=== PATIENT | male | born 1980 ===

== ENCOUNTER 2016-10-06 21:36 | Emergency (ER) | payer OTHER ==
[2016-10-06 22:00] VITALS: BP 131/82; PULSE 67; RESP 20; TEMP 98.1; O2SAT 99
--- NOTE | 2016-10-06 22:12 | C.PDOC ---
History Of Present Illness 36 y.o male presents to ED with complaints of chest and rib pain after dropping 200pound weight from barbells at gym one week ago. He states he was lifting and it slipped and the bar hit his chest. He has been taking Advil with mild relief , but pain persists and worsens with movement and deep inspiration. Denies swelling, bruising, SOB. Time Seen by Provider: 10/06/16 21:59 Chief Complaint (Nursing): Chest Pain History Per: Patient History/Exam Limitations: no limitations Onset/Duration Of Symptoms: Days (7) Current Symptoms Are (Timing): Still Present Past Medical History Reviewed: Historical Data, Nursing Documentation, Vital Signs Vital Signs: Last Vital Signs Temp 98.1 F 10/06/16 21:55 Pulse 67 10/06/16 21:55 Resp 20 10/06/16 21:55 BP 131/82 10/06/16 21:55 Pulse Ox 99 10/06/16 22:14 - Medical History PMH: No Chronic Diseases Surgical History: No Surg Hx Family History: States: Unknown Family Hx - Social History Hx Alcohol Use: Yes Hx Substance Use: No - Immunization History Hx Tetanus Toxoid Vaccination: No Hx Influenza Vaccination: No Hx Pneumococcal Vaccination: No Review Of Systems Constitutional: Negative for: Fever, Weakness, Malaise Cardiovascular: Positive for: Chest Pain (rib pain). Negative for: Palpitations Respiratory: Negative for: Cough, Shortness of Breath Gastrointestinal: Negative for: Vomiting, Abdominal Pain, Diarrhea Musculoskeletal: Negative for: Neck Pain, Arm Pain Skin: Negative for: Rash, Bruising Neurological: Negative for: Headache, Dizziness Physical Exam - Physical Exam Appears: Non-toxic, No Acute Distress Skin: Warm, Dry, No Rash, No Ecchymosis Head: Atraumatic, Normacephalic Eye(s): bilateral: Normal Inspection Oral Mucosa: Moist Neck: Normal ROM Chest: Symmetrical, No Deformity, Tenderness (anterior chest wall tenderness below nipple line, right lateral ribs mildly tender), No Ecchymosis, No Subcutaneous Emphysema Cardiovascular: Rhythm Regular, No Murmur Respiratory: Normal Breath Sounds, No Rhonchi, No Wheezing Back: Normal Inspection, No Vertebral Tenderness, No Paraspinal Tenderness Extremity: Normal ROM, No Deformity, No Swelling Neurological/Psych: Oriented x3, Normal Speech ED Course And Treatment O2 Sat by Pulse Oximetry: 99 Medical Decision Making Medical Decision Making: Impression: 36 y.o male with chest and rib pain s.p injury Plan: Chest and rib xray Progress: Xray reviewed showing no acute fracture Recommend analgesics, motrin or tylenol Disposition Counseled Patient/Family Regarding: Need For Followup, Rx Given - Disposition Referrals: [facility] [Outside] [facility] [Outside] [facility] [Outside] Disposition: HOME/ ROUTINE Disposition Time: 22:36 Condition: STABLE Additional Instructions: [place] Naproxen cada 6-8 horas para el dolor Siga con haji mdico o clnica primaria en gregorio semana para gregorio evaluacin ms detallada y referencia ortopdica si el dolor persiste La radiografa era normal Prescriptions: Naproxen [Naprosyn] 1 tab PO BID PRN #25 tab PRN Reason: Pain Instructions: Rib Contusion (ED) Print Language: FAROESE - POA Present On Arrival: None - Clinical Impression Clinical Impression: Chest wall contusion
--- NOTE | 2016-10-07 10:20 | RAD ---
PROCEDURE: Radiographs of the Chest and Right Ribs. HISTORY: pain to chest/rib s.p injury at gym COMPARISON: 03/09/2012. TECHNIQUE: Frontal radiograph of the chest and multiple oblique radiographs of the right ribs were obtained. FINDINGS: RIGHT RIBS: No fracture or focal lesion visualized. LUNGS: Clear. PLEURA: No pneumothorax or pleural fluid. CARDIOVASCULAR: Normal sized heart. No pulmonary vascular congestion. OTHER FINDINGS: None. IMPRESSION: Unremarkable radiographs of the chest and right ribs. No right rib fracture. No significant interval change compared to the prior examination(s). Concordant results with the preliminary interpretation rendered by the emergency department physician procedure.
--- NOTE | 2016-10-08 08:44 | CARD ---
APPROVED REPORT EKG Measurement Heart [id number] [id number] <Conclusion> Normal sinus rhythm Minimal voltage criteria for LVH, may be normal variant Borderline ECG
== END 2016-10-06 22:42 | disposition home or self-care (01) ==
LOC: C.ER 21:36
DX: S20.211A Contusion of right front wall of thorax, initial encounter (principal); W22.8XXA Striking against or struck by other objects, initial encounter; Y93.B3 Activity, free weights

== ENCOUNTER 2017-04-01 09:44 | Emergency (ER) | payer OTHER ==
[2017-04-01 09:51] VITALS: BP 131/78; PULSE 56; RESP 20; TEMP 97.5; O2SAT 98
--- NOTE | 2017-04-01 10:10 | C.PDOC ---
History Of Present Illness 36 year old male presents to the ER with complaint of intermittent headache associated with light sensitivity and occasional tingling in the hands for the past 12 years. He states his PMD is aware of symptoms, and he had a "test of the head" 6 years ago which was "normal". Patient has not been evaluated by neurologist. He comes to the ER today because yesterday he had another episode of the symptoms that was stronger than typical. Symptoms from yesterday have since resolved. Patient denies fever, visual changes, dizziness , facial droop, slurred speech, neck pain/stiffness, extremity weakness, gait changes, nausea/vomiting. Time Seen by Provider: 04/01/17 09:58 Chief Complaint (Nursing): Headache History Per: Patient History/Exam Limitations: no limitations Onset/Duration Of Symptoms: Persistent (12 years) Current Symptoms Are (Timing): Gone Preceeding Symptoms: Known Migraine Symptoms Associated Symptoms: Photophobia, Other (Tingling in hands). denies: Blurred Vision, Nausea, Vomiting, Extremity Weakness Past Medical History Reviewed: Historical Data, Nursing Documentation, Vital Signs Vital Signs: Last Vital Signs Temp 97.5 F L 04/01/17 09:48 Pulse 56 L 04/01/17 09:48 Resp 20 04/01/17 09:48 BP 131/78 04/01/17 09:48 Pulse Ox 98 04/01/17 11:11 - Medical History Other PMH: headaches x 12 years Surgical History: No Surg Hx Family History: States: No Known Family Hx - Social History Hx Alcohol Use: No Hx Substance Use: No - Immunization History Hx Tetanus Toxoid Vaccination: No Hx Influenza Vaccination: No Hx Pneumococcal Vaccination: No Review Of Systems Except As Marked, All Systems Reviewed And Found Negative. Constitutional: Negative for: Fever, Chills Cardiovascular: Negative for: Chest Pain, Palpitations Respiratory: Negative for: Cough, Shortness of Breath Gastrointestinal: Negative for: Nausea, Vomiting, Abdominal Pain, Diarrhea Musculoskeletal: Negative for: Neck Pain Skin: Negative for: Rash Neurological: Positive for: Headache, Other (light sensitivity, tingling in hands). Negative for: Weakness, Incoordination, Change in Speech, Confusion, Seizures, Altered Mental Status, Dizziness Physical Exam - Physical Exam Appears: Well, Non-toxic, No Acute Distress Skin: Normal Color, Warm, Dry, No Rash Head: Atraumatic, Normacephalic Eye(s): bilateral: Normal Inspection, PERRL, EOMI Oral Mucosa: Moist Neck: Normal, Normal ROM, No Midline Cervical Tenderness, No Paracervical Tenderness, No Step Off Deformity, Supple, Other (no meningismus ) Cardiovascular: Rhythm Regular, No Murmur Respiratory: Normal Breath Sounds, No Rales, No Rhonchi, No Wheezing Gastrointestinal/Abdominal: Normal Exam, Bowel Sounds, Soft, No Tenderness Extremity: Normal ROM Extremity: Bilateral: Atraumatic, Normal Color And Temperature, Normal ROM Neurological/Psych: Oriented x3, Normal Speech, Normal Cognition, Normal Cranial Nerves, No Cerebellar Signs, Normal Motor, Normal Sensation, No Dysarthria, No Romberg Gait: Steady ED Course And Treatment O2 Sat by Pulse Oximetry: 98 (Room air) Pulse Ox Interpretation: Normal Progress Note: Patient requesting medication for nausea - Zofran ODT given. He admits he did not visit PMD for symptoms because his PMD will charge him for office visit. Explained to patient that a CT head is not the appropriate test for his typie of symptoms. Patient instructed to follow up with neurology within 1 week for further evaluation, and to request Rx for outpatient MRI from his PMD/neuro. Rxs for Fiorecet and Zofran ODT given. He understands he should return to ED if symptoms worsen. Disposition Counseled Patient/Family Regarding: Diagnosis, Need For Followup, Rx Given - Disposition Referrals: Adolph Campbell MD [Medical Doctor] - Dorian Gil MD [Staff Provider] - Disposition: HOME/ ROUTINE Disposition Time: 10:20 Condition: STABLE Additional Instructions: FOLLOW UP WITH YOUR DOCTOR IN 1-2 DAYS, AND WITH NEUROLOGIST WITHIN 1 WEEK USE MEDICATION NEEDED ASK YOUR DOCTOR FOR PRESCRIPTION FOR OUTPATIENT MRI RETURN TO EMERGENCY ROOM IF SYMPTOMS WORSEN SEGUIMIENTO CON HARDIN MDICO EN 1-2 RODRÍGUEZ, Y CON NEURLOGO DENTRO DE 1 SEMANA USE MEDICAMENTOS SEGN SEA NECESARIO PREGUNTE A HARDIN MDICO PARA LA PRESCRIPCIN PARA MRI AMBULATORIO REGRESE AL PATIENCE DE EMERGENCIA SI LOS SNTOMAS EMPEORAN Prescriptions: Acetaminophen/Butalbital/Caf [Fioricet] 1 tab PO TID PRN #20 tab PRN Reason: Headache Ondansetron [Zofran Odt] 4 mg PO Q8 PRN #12 odt PRN Reason: Nausea/Vomiting Instructions: Migraine Headache (ED) Forms: [employer] (French) Print Language: DANISH - POA Present On Arrival: None - Clinical Impression Clinical Impression: Migraine - Scribe Statement The provider has reviewed the documentation as recorded by the Scribtiarra Mccullough All medical record entries made by the Turneribtiarra were at my direction and personally dictated by me. I have reviewed the chart and agree that the record accurately reflects my personal performance of the history, physical exam, medical decision making, and the department course for this patient. I have also personally directed, reviewed, and agree with the discharge instructions and disposition.
== END 2017-04-01 10:20 | disposition home or self-care (01) ==
LOC: C.ER 09:44
DX: G43.909 Migraine, unspecified, not intractable, without status migrainosus (principal)

== ENCOUNTER 2018-02-25 09:22 | Emergency (ER) | payer OTHER ==
[2018-02-25 09:23] VITALS: BMI 29.2
[2018-02-25 09:38] VITALS: BP 131/95; PULSE 58; RESP 20; TEMP 98.6; O2SAT 98
--- NOTE | 2018-02-25 10:11 | C.PDOC ---
History Of Present Illness 37 y/o male, w/no significant PMhx, presents to the ER complaining of dry mouth, sore throat, and acid reflux which has been present for the past 2 months. Patient states that he wake up in the morning daily with dry mouth and sore throat. Patient is also complaining of increasing heartburn with substernal chest pain and epigastric pain for the past 2 months. He notes that the pain is worse with laying flat after meals. He took an unknown OTC medication for the symptoms without relief. Denies having fever, chills, lightheadedness, visual changes, ear pain, neck pain, palpitations, diaphoresis, nausea, vomiting, and diarrhea. Chief Complaint (Nursing): ENT Problem History Per: Patient History/Exam Limitations: None Onset/Duration Of Symptoms: Days Current Symptoms Are (Timing): Still Present Severity: Moderate Past Medical History Reviewed: Historical Data, Nursing Documentation, Vital Signs Vital Signs: Last Vital Signs Temp 98.6 F 02/25/18 09:35 Pulse 58 L 02/25/18 09:35 Resp 20 02/25/18 09:35 BP 131/95 H 02/25/18 09:35 Pulse Ox 98 02/25/18 09:35 - Medical History PMH: No Chronic Diseases Surgical History: No Surg Hx Family History: States: No Known Family Hx - Social History Hx Alcohol Use: No Hx Substance Use: No - Immunization History Hx Tetanus Toxoid Vaccination: No Hx Influenza Vaccination: No Hx Pneumococcal Vaccination: No Review Of Systems Except As Marked, All Systems Reviewed And Found Negative. Constitutional: Negative for: Fever, Chills Eyes: Negative for: Vision Change ENT: Positive for: Throat Pain, Other (dry mouth). Negative for: Ear Pain Cardiovascular: Negative for: Chest Pain, Palpitations Respiratory: Negative for: Cough, Shortness of Breath Gastrointestinal: Positive for: Abdominal Pain (epigastric), Other (acid reflux). Negative for: Nausea, Vomiting, Diarrhea, Constipation, Melena, Hem atochezia, Hematemesis Musculoskeletal: Negative for: Neck Pain, Shoulder Pain, Arm Pain, Back Pain, Hand Pain, Leg Pain, Foot Pain Skin: Negative for: Rash Neurological: Negative for: Weakness, Numbness, Headache Physical Exam - Physical Exam Appears: Non-toxic Skin: Normal Color, Warm Head: Atraumatic, Normacephalic Eye(s): bilateral: Normal Inspection, PERRL, EOMI Ear(s): Bilateral: Normal Nose: Normal Oral Mucosa: Moist Tongue: Normal Appearing Lips: Normal Appearing Teeth: Normal Dentition Gingiva: Normal Appearing Throat: Normal, No Erythema, No Exudate Neck: Normal, Normal ROM, Supple Lymphatic: Normal Exam Chest: Symmetrical Cardiovascular: Rhythm Regular Respiratory: Normal Breath Sounds, No Rales, No Rhonchi, No Wheezing Gastrointestinal/Abdominal: Bowel Sounds, Soft, Tenderness (mild epigastric tenderness), No Mass, No Guarding, No Rebound Pulses: Left Radial: Normal, Right Radial: Normal Neurological/Psych: Oriented x3, Normal Speech, Normal Cognition, Normal Cranial Nerves, No Cerebellar Signs, Normal Motor, Normal Sensation ED Course And Treatment O2 Sat by Pulse Oximetry: 98 (RA) Pulse Ox Interpretation: Normal Medical Decision Making Medical Decision Making: Impression: Acid Reflux Plan: Take omeprazole 1 pill every morning Take pepcid 1 pill every 12 hours as needed for acid reflux Followup with clinic or primary doctor within 2 days Return to Emergency department if symptoms worsen Disposition - Disposition Referrals: [facility] [Outside] Disposition: HOME/ ROUTINE Disposition Time: 10:08 Condition: GOOD Additional Instructions: Lindsay omeprazole 1 pldora cada maana Lindsay Pepcid 1 pldora cada 12 horas segn sea necesario para el reflujo cido Seguimiento con clnica o mdico de cabecera en 2 segal Regresar al Departamento de emergencias si los sntomas empeoran Prescriptions: Famotidine [Pepcid] 20 mg PO Q12H PRN #30 tab PRN Reason: reflux Omeprazole 40 mg PO DAILY 30 Days #30 tab Instructions: Acid Reflux (Gastroesophageal Reflux Disease), Adult (DC) Forms: [employer] (Telugu) Print Language: CITIZEN [place] - Clinical Impression Clinical Impression: Acid reflux - PA / FBI SHARPSHOOTER / Resident Statement MD/DO has reviewed & agrees with the documentation as recorded. - Scribe Statement The provider has reviewed the documentation as recorded by the Scribe Myles Rendon Provider Attestation All medical record entries made by the Scribe were at my direction and personally dictated by me. I have reviewed the chart and agree that the record accurately reflects my personal performance of the history, physical exam, medical decision making, and the department course for this patient. I have also personally directed, reviewed, and agree with the discharge instructions and disposition.
== END 2018-02-25 10:32 | disposition home or self-care (01) ==
LOC: C.ER 09:22
DX: K21.9 Gastro-esophageal reflux disease without esophagitis (principal)

== ENCOUNTER 2018-04-30 23:17 | Emergency (ER) | payer OTHER ==
[2018-04-30 23:18] VITALS: BMI 29.2
[2018-04-30] MEDS ORDERED: Sodium Chloride 0.9% 1,000 ML IV ONE (23:42)
[2018-04-30] MEDS ORDERED: Sodium Chloride 0.9% 1,000 ML ONE (23:51)
[2018-05-01] MEDS ORDERED: Iohexol 240 (50 ml) PO ONE
[2018-05-01] MEDS ORDERED: Iohexol 240 (50 ml) ONE (00:05)
--- NOTE | 2018-05-01 00:17 | C.PDOC ---
History Of Present Illness 37 year old male presents to the ER with a complaint of RLQ pain intermittently for the past few days that worsened today. Denies nausea, vomiting, or diarrhea. Chief Complaint (Nursing): Abdominal Pain History Per: Patient History/Exam Limitations: no limitations Onset/Duration Of Symptoms: Days, Intermittent Episodes Current Symptoms Are (Timing): Still Present Location Of Pain/Discomfort: RLQ Quality Of Discomfort: Unable To Describe Associated Symptoms: denies: Nausea, Vomiting, Diarrhea Exacerbating Factors: None Alleviating Factors: None Recent travel outside of the [place]: No Past Medical History Reviewed: Historical Data, Nursing Documentation, Vital Signs Vital Signs: Last Vital Signs Temp 98 F 04/30/18 23:27 Pulse 65 04/30/18 23:27 Resp 16 04/30/18 23:27 BP Pulse Ox 96 04/30/18 23:27 Family History: States: Unknown Family Hx - Social History Hx Alcohol Use: No Hx Substance Use: No - Immunization History Hx Tetanus Toxoid Vaccination: No Hx Influenza Vaccination: No Hx Pneumococcal Vaccination: No Review Of Systems Constitutional: Negative for: Fever, Chills Cardiovascular: Negative for: Chest Pain, Palpitations Respiratory: Negative for: Cough, Shortness of Breath Gastrointestinal: Positive for: Abdominal Pain. Negative for: Nausea, Vomiting, Diarrhea Genitourinary: Negative for: Dysuria, Hematuria Physical Exam - Physical Exam Appears: Non-toxic Skin: Normal Color, Warm, Dry Head: Atraumatic, Normacephalic Eye(s): bilateral: Normal Inspection Oral Mucosa: Moist Neck: Normal, Supple Chest: Symmetrical, No Tenderness Cardiovascular: Rhythm Regular Respiratory: Normal Breath Sounds, No Rales, No Rhonchi, No Wheezing Gastrointestinal/Abdominal: Soft, Tenderness (RLQ, Hypogastric), No Guarding, No Rebound Back: No CVA Tenderness Neurological/Psych: Oriented x3, Normal Speech ED Course And Treatment - Laboratory Results Result Diagrams: 04/30/18 23:59 04/30/18 23:59 O2 Sat by Pulse Oximetry: 96 (Room air) Pulse Ox Interpretation: Normal Progress Note: CT abd/pel, blood work, and urinalysis. IV fluids and toradol administered. Disposition Counseled Patient/Family Regarding: Diagnosis - Disposition Referrals: [facility] at [facility] [Outside] Disposition: HOME/ ROUTINE Disposition Time: 03:54 Condition: STABLE Prescriptions: Docusate Sodium [Colace] 100 mg PO BID #20 capsule Instructions: Constipation in Adults Forms: [employer] (Chinese), Gen Discharge Inst Portuguese Print Language: CZECH - POA Present On Arrival: None - Clinical Impression Clinical Impression: Abdominal pain, Constipation - Scribe Statement The provider has reviewed the documentation as recorded by the Scribe Alex Mccullough All medical record entries made by the Turneribe were at my direction and personally dictated by me. I have reviewed the chart and agree that the record accurately reflects my personal performance of the history, physical exam, medical decision making, and the department course for this patient. I have also personally directed, reviewed, and agree with the discharge instructions and disposition.
[2018-05-01 00:18] LABS: ALB/GLOB RATIO 1.8 (1.0-2.1); ALBUMIN 4.4 g/dL (3.5-5.0); ALT/SGPT 30 U/L (21-72); AST/SGOT 32 U/L (17-59); BLOOD UREA NITROGEN 16 mg/dL (9-20); CALCIUM 9.1 mg/dl (8.6-10.4); GFR NON-AFRICAN AMERICAN > 60; LIPASE 53 U/L (23-300)
[2018-05-01 00:28] LABS: BASO % 0.4 % (0.0-2.0); EOS # 0.3 K/uL (0.0-0.7); EOS % 3.7 % (0.0-4.0); HEMOGLOBIN 15.4 g/dL (12.0-18.0); LYMPH # 2.6 K/uL (1.0-4.3); LYMPH % 31.7 % (20.0-40.0); MEAN CELL VOLUME 86.6 fL (80.0-94.0); MEAN CORPUSCULAR HEMOGLOBIN 30.6 pg (27.0-31.0); MEAN CORPUSCULAR HGB CONC 35.3 g/dL (33.0-37.0); MEAN PLATELET VOLUME 8.2 fL (7.2-11.7); MONO # 0.6 K/uL (0.0-0.8); MONO % 7.8 % (0.0-10.0); NEUT # 4.6 K/uL (1.8-7.0); NEUT % 56.4 % (50.0-75.0); NRBC % 0.1 % (0.0-2.0); RBC 5.04 Mil/uL (4.40-5.90); RED CELL DISTRIBUTION WIDTH 13.4 % (11.5-14.5); WHITE BLOOD COUNT 8.1 K/uL (4.8-10.8)
[2018-05-01] MEDS ORDERED: Iodixanol 320 MG/ML 100 ML BOTTLE IV ONE (01:33)
[2018-05-01 03:45] LABS: URINE BILIRUBIN NEGATIVE (NEGATIVE); URINE BLOOD NEGATIVE (NEGATIVE); URINE CLARITY Clear (Clear); URINE COLOR Colorless (YELLOW); URINE GLUCOSE (UA) NORMAL (Normal); URINE LEUKOCYTE ESTERASE NEG Leu/uL (Negative); URINE PROTEIN NEGATIVE (NEGATIVE); URINE UROBILINOGEN NORMAL mg/dL (0.2-1.0)
[2018-05-01 03:59] VITALS: BP 143/84; PULSE 51; RESP 16; TEMP 97.6; O2SAT 97
--- NOTE | 2018-05-01 14:52 | CT ---
Date of service: 05/01/2018 PROCEDURE: CT Abdomen and Pelvis with contrast HISTORY: RLQ abd pain COMPARISON: None. TECHNIQUE: Contrast dose: 100 mL of Visipaque 320. Axial and reformatted coronal and sagittal CT images of the abdomen and pelvis were obtained after IV and oral contrast administration. Radiation dose: Total exam DLP = 384.05 mGy-cm. This CT exam was performed using one or more of the following dose reduction techniques: Automated exposure control, adjustment of the mA and/or kV according to patient size, and/or use of iterative reconstruction technique. FINDINGS: LOWER THORAX: Unremarkable. LIVER: Unremarkable. No gross lesion or ductal dilatation. GALLBLADDER AND BILE DUCTS: Unremarkable. PANCREAS: Unremarkable. No gross lesion or ductal dilatation. SPLEEN: Unremarkable. ADRENALS: Unremarkable. No mass. KIDNEYS AND URETERS: Unremarkable. No hydronephrosis. No solid mass. VASCULATURE: Unremarkable. No aortic aneurysm. No aortic atherosclerotic calcification or mural plaque present. BOWEL: [id number] constipation. No obstruction. No gross mural thickening. APPENDIX: No CT evidence of acute appendicitis. PERITONEUM: Unremarkable. No free fluid. No free air. LYMPH NODES: Unremarkable. No enlarged lymph nodes. BLADDER: The urinary bladder is mildly to moderately distended. REPRODUCTIVE: Unremarkable. BONES: No acute fracture. OTHER FINDINGS: None. IMPRESSION: No definite CT evidence of acute appendicitis. [id number] constipation. Preliminary report was submitted by [facility] Radiology contains concordant findings.
== END 2018-05-01 04:07 | disposition home or self-care (01) ==
LOC: C.ER 23:17
DX: K59.00 Constipation, unspecified (principal); R10.31 Right lower quadrant pain
CPT/HCPCS: 74177; 80053; 81001; 83690; 85025; 96361; 96374; 99285; J1885; J7030; Q9966; Q9967

== ENCOUNTER 2018-08-16 11:24 | Emergency (ER) | payer OTHER ==
[2018-08-16 11:25] VITALS: BMI 29.2
[2018-08-16 11:38] VITALS: RESP 18
--- NOTE | 2018-08-16 13:47 | C.PDOC ---
History Of Present Illness 38 year old male presents to the ED for evaluation of dry cough which began 5 days ago. Patient also reports associated fever and sore throat. Patient has been taking Tylenol, which has helped the fever, but the dry cough and sore throat still persists. Patient denies sick contacts, history of seasonal allergies, headache, chest pain, shortness of breath, nausea, vomiting, diarrhea, and abdominal pain. 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 denies: Sputum, Nausea, Vomiting, Diarrhea Additional History Per: Patient Past Medical History Reviewed: Historical Data, Nursing Documentation, Vital Signs Vital Signs: Last Vital Signs Temp 98.5 F 08/16/18 11:36 Pulse 60 08/16/18 11:36 Resp 18 08/16/18 11:36 BP 133/84 08/16/18 11:36 Pulse Ox 98 08/16/18 11:36 - Medical History PMH: No Chronic Diseases Surgical History: No Surg Hx Family History: States: Unknown Family Hx - Social History Hx Alcohol Use: No Hx Substance Use: No - Immunization History Hx Tetanus Toxoid Vaccination: No Hx Influenza Vaccination: No Hx Pneumococcal Vaccination: No Review Of Systems Constitutional: Positive for: Fever ENT: Positive for: Throat Pain Cardiovascular: Negative for: Chest Pain Respiratory: Positive for: Cough. Negative for: Shortness of Breath, Sputum Gastrointestinal: Negative for: Nausea, Vomiting, Abdominal Pain, Diarrhea Neurological: Negative for: Weakness, Numbness, Headache Physical Exam - Physical Exam Appears: Non-toxic, No Acute Distress Skin: Normal Color, Warm, Dry Head: Atraumatic, Normacephalic Eye(s): bilateral: PERRL, EOMI, Other (scleral injection ) Ear(s): Bilateral: Normal Nose: Normal, No Discharge Oral Mucosa: Moist Throat: Normal, No Erythema, No Exudate Neck: Supple Chest: Symmetrical, No Deformity, No Tenderness Cardiovascular: Rhythm Regular, No Murmur Respiratory: Normal Breath Sounds, No Rales, No Rhonchi, No Wheezing Extremity: Normal ROM, Capillary Refill (less than 2 seconds ) Neurological/Psych: Normal Speech, Normal Cognition ED Course And Treatment O2 Sat by Pulse Oximetry: 98 (on RA ) Pulse Ox Interpretation: Normal Disposition Counseled Patient/Family Regarding: Diagnosis, Need For Followup, Rx Given - Disposition Referrals: [facility] at [facility] [Outside] Disposition: HOME/ ROUTINE Disposition Time: 13:47 Condition: STABLE Additional Instructions: Continue Tessalon Perles three times a day as needed for cough Rest and Hydration Follow up in Clinic in 1-2 days Return to ED if symptoms worsen Prescriptions: Benzonatate [Tessalon Perles] 100 mg PO TID #30 sgl Olopatadine HCl [Patanol] 1 drop OU BID #1 bottle Instructions: Viral Upper Respiratory Infection, Adult (DC), Conjunctivitis (Noninfectious Pinkeye) (DC) Forms: [employer] (Yi) Print Language: [place] - Clinical Impression Clinical Impression: Upper respiratory infection, Cough, Allergic conjunctivitis - PA / RN CLINICAL TRIALS / Resident Statement MD/DO has reviewed & agrees with the documentation as recorded. - Scribe Statement The provider has reviewed the documentation as recorded by the Scribe (Izzy Srivastava) All medical record entries made by the Scribe were at my direction and personally dictated by me. I have reviewed the chart and agree that the record accurately reflects my personal performance of the history, physical exam, medical decision making, and the department course for this patient. I have also personally directed, reviewed, and agree with the discharge instructions and disposition.
[2018-08-16 14:20] VITALS: BP 130/78; PULSE 56; TEMP 97.7
[2018-08-16 15:15] VITALS: O2SAT 98
== END 2018-08-16 14:15 | disposition home or self-care (01) ==
LOC: C.ER 11:24
DX: J06.9 Acute upper respiratory infection, unspecified (principal); R05 Cough; H10.10 Acute atopic conjunctivitis, unspecified eye

== ENCOUNTER 2018-08-23 09:33 | Emergency (ER) | payer OTHER ==
[2018-08-23 09:34] VITALS: BMI 29.2
[2018-08-23 09:53] VITALS: BP 119/72; PULSE 54; RESP 18; TEMP 98.2; O2SAT 99
--- NOTE | 2018-08-23 10:41 | C.PDOC ---
History Of Present Illness 38 year old male presents to ED with complaint of left upper gum pain for the past 3-4 weeks. Patient states that over the past week the area become white and white discharge came out. Patient states that he has not seen a dentist. He states that he has been taking Tylenol for pain as needed. He denies fever and trauma. Time Seen by Provider: 08/23/18 09:59 Chief Complaint (Nursing): Dental Pain History Per: Patient History/Exam Limitations: no limitations Onset/Duration Of Symptoms: Other (3-4 weeks) Current Symptoms Are (Timing): Still Present Quality: Positive for: "Pain" Past Medical History Reviewed: Historical Data, Nursing Documentation, Vital Signs Vital Signs: Last Vital Signs Temp 98.2 F 08/23/18 09:51 Pulse 54 L 08/23/18 09:51 Resp 18 08/23/18 09:51 BP 119/72 08/23/18 09:51 Pulse Ox 99 08/23/18 09:51 - Medical History PMH: No Chronic Diseases Surgical History: No Surg Hx Family History: States: Unknown Family Hx - Social History Hx Alcohol Use: No Hx Substance Use: No - Immunization History Hx Tetanus Toxoid Vaccination: No Hx Influenza Vaccination: No Hx Pneumococcal Vaccination: No Review Of Systems Constitutional: Negative for: Fever ENT: Positive for: Other (left upper gum pain with white discharge) Neurological: Negative for: Numbness Physical Exam - Physical Exam Appears: Well, Non-toxic, No Acute Distress, Other (comfortable) Skin: Normal Color, Warm, Dry Head: Atraumatic, Normacephalic Tongue: No Swelling Lips: No Swelling Teeth: No Caries Gingiva: No Erythema, No Swelling, Other (Pustule immediately to the upper gum at teeth 9 and 10, no fluctuance, no induration) Neck: Normal ROM, Supple Chest: Symmetrical, No Deformity Cardiovascular: Rhythm Regular, No Murmur Respiratory: No Accessory Muscle Use, No Rales, No Rhonchi, No Wheezing Extremity: Capillary Refill (<2 seconds) Neurological/Psych: Oriented x3, Normal Speech, Normal Cognition ED Course And Treatment O2 Sat by Pulse Oximetry: 99 (in RA) Progress Note: Patient given Amoxicillin PO, Ibuprofen PO, and Oragel. Patient instructed to follow up with dentist. Re-evaluation. Patient feels better. Discussed results and plan with patient who expresses understanding. All questions answered and there is agreement with the plan to discharge home with instructions. Patient stable for discharge. Return if symptoms persist or worsen. Disposition Counseled Patient/Family Regarding: Diagnosis, Need For Followup, Rx Given - Disposition Referrals: Zack Renae [Outside] Disposition: HOME/ ROUTINE Disposition Time: 10:45 Condition: STABLE Additional Instructions: FOLLOW UP WITH DENTIST AT [facility] WITHIN 1 WEEK USE MEDICATIONS NEEDED RETURN TO EMERGENCY ROOM IF YOUR SYMPTOMS BECOME WORSE SIGUE CON EL DENTISTA EN LA CLNICA DE WHEELER DEL [place] DENTRO DE 1 SEMANA UTILICE MEDICAMENTOS KATHLEEN SE NECESITE VUELVA A LA PATIENCE DE EMERGENCIA SI SUMAYA SNTOMAS SE HACEN PEOR Prescriptions: Amoxicillin 875 mg PO BID #14 tab Benzocaine 7.5% [Orajel 7.5%] 1 appl MM TID PRN #1 tube PRN Reason: pain Ibuprofen [Motrin Tab] 600 mg PO Q6 PRN #30 tab PRN Reason: fever/pain Instructions: Dental Pain (DC) Forms: 7write (Vietnamese) Print Language: TURKMEN - Clinical Impression Clinical Impression: Pain, dental, Dental abscess - Scribe Statement The provider has reviewed the documentation as recorded by the Scribe (Leeanne Arauz) All medical record entries made by the Scribe were at my direction and personally dictated by me. I have reviewed the chart and agree that the record accurately reflects my personal performance of the history, physical exam, medical decision making, and the department course for this patient. I have also personally directed, reviewed, and agree with the discharge instructions and disposition.
== END 2018-08-23 11:03 | disposition home or self-care (01) ==
LOC: C.ER 09:33
DX: K04.7 Periapical abscess without sinus (principal); K08.89 Other specified disorders of teeth and supporting structures